=== PATIENT | male | born 1945 | race Caucasian/White ===

== ENCOUNTER 2016-12-05 23:16 | Inpatient (IN) | payer MEDICARE, OTHER ==
[~2016-12-05] VITALS: Ht 175.3 cm; Wt 88.0 kg
[~2016-12-05 23:16] MED LIST: 1-ME1LIQ PO; ASPI81 PO; CITA20TA4 PO; DOCU100T9 PO; GAS-80CH PO; GLUC500C3 PO; ISOS60TA PO; LEVA500T33 PO; LISI-366 PO; METO100T PO; NITR.4 SL; PRIL20CA PO; ROBA750T3 PO; ROSU40 PO; TERA1CAP3 PO; TRAM50TA PO; TRAZ50TA4 PO; WAL-10TA2 PO
[2016-12-05 23:20] VITALS: BP 146/68; PULSE 65; RESP 18
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
[2016-12-05] MEDS ORDERED: ZOSTCRE TOPICAL (23:48)
[2016-12-05] MEDS ORDERED: DOCU100C PO (23:48)
[2016-12-05] MEDS ORDERED: ATOR1TAB18 PO (23:48)
[2016-12-05] MEDS ORDERED: OMEP20TA PO (23:48)
[2016-12-05] MEDS ORDERED: GABA400C5 PO (23:48)
[2016-12-05] MEDS ORDERED: XARE20TA PO (23:48)
[2016-12-05] MEDS ORDERED: CITA20TA4 PO (23:48)
[2016-12-05] MEDS ORDERED: LISI40TA PO (23:48)
[2016-12-05] MEDS ORDERED: DICY20TA10 PO (23:48)
[2016-12-05] MEDS ORDERED: METO100T PO (23:48)
[2016-12-05] MEDS ORDERED: SIME80CH CHEW (23:48)
[2016-12-05] MEDS ORDERED: AMLO10TA2 PO (23:48)
[2016-12-05] MEDS ORDERED: METF500T PO (23:48)
[2016-12-05] MEDS ORDERED: TERA2CAP3 PO (23:48)
[2016-12-05] MEDS ORDERED: FLUT50SP EACH NARE (23:48)
[2016-12-05] MEDS ORDERED: TRAZ50TA12 PO (23:48)
[2016-12-05] MEDS ORDERED: CETI10 PO (23:48)
[2016-12-06] MEDS ORDERED: HYDROmorphone HCL PF 1 MG/ML VIAL IVP PRN (00:15)
[2016-12-06] MEDS ORDERED: SODIUM CHLORIDE 0.9% FLUSH 10 ML FLUSH IV FLUSH PRN (00:15)
[2016-12-06] MEDS ORDERED: CHLORHEXIDINE GLUCONATE 2 % 1 PACK (2 CLOTHS) TOP PRN (00:15)
[2016-12-06] MEDS ORDERED: MISCELLANEOUS NURSING INFORMATION XX SCH (00:15)
[2016-12-06] MEDS ORDERED: ACETAMINOPHEN/HYDROcodone 325 MG/5 MG TAB PO PRN (00:15)
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
[2016-12-06] MEDS: ACETAMINOPHEN/HYDROcodone 325 MG/5 MG TAB PO PRN ×2 (00:56→08:12)
[2016-12-06 03:30] VITALS: BP 128/67; PULSE 62; RESP 17; TEMP 98; O2SAT 93
[2016-12-06] MEDS: CHLORHEXIDINE GLUCONATE 2 % 1 PACK (2 CLOTHS) TOP SCH (04:00)
[2016-12-06 07:49] VITALS: BP 134/63; PULSE 73; RESP 20; TEMP 98; O2SAT 92
[2016-12-06] MEDS: DOCUSATE SODIUM 100 MG/10 ML UDC PO SCH ×2 (08:10→20:39)
[2016-12-06] MEDS ORDERED: SIMETHICONE 80 MG CHEWABLE TAB CHEW PRN (08:15)
[2016-12-06] MEDS: FLUTICASONE PROPIONATE 50 MCG/ACT 16 GM NASAL SPRAY EACH NARE SCH ×3 (09:00→20:39)
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
[2016-12-06] MEDS ORDERED: REMOVE OLD LIDOCAINE PATCH T-DERMAL SCH ×2 (09:30→21:00)
[2016-12-06] MEDS: METHOCARBAMOL 500 MG TAB PO SCH ×2 (10:00→18:32)
[2016-12-06 10:12] LABS: AUTOMATED NEUTROPHIL # 5.6 TH/MM3 (1.8-7.7); BASOPHIL % 0.3 % (0.0-2.0); EOSINOPHIL # 0.1 TH/MM3 (0-0.4); EOSINOPHIL % 0.9 % (0.0-4.0); HEMATOCRIT 38.6 % (39.0-51.0); HEMO FLAGS DIFF FINAL; LYMPH % 19.2 % (9.0-44.0); LYMPHOCYTE # 1.5 TH/MM3 (1.0-4.8); MEAN CELL VOLUME 85.5 FL (80.0-100.0); MEAN CORPUSCULAR HEMOGLOBIN 28.2 PG (27.0-34.0); MONO % 10.3 % (0.0-8.0); NEUT % 69.3 % (16.0-70.0); PLATELET COUNT 146 TH/MM3 (150-450); RED BLOOD COUNT 4.52 MIL/MM3 (4.50-5.90); WHITE BLOOD COUNT 8.1 TH/MM3 (4.0-11.0)
[2016-12-06 10:34] LABS: BICARBONATE 26.2 MEQ/L (21.0-32.0); POTASSIUM 4.1 MEQ/L (3.5-5.1)
[2016-12-06] MEDS: KETOROLAC TROMETHAMINE 30 MG/ML (IVP) VIAL IV PUSH SCH ×3 (12:00→18:33)
[2016-12-06 12:05] VITALS: BP 130/64; PULSE 70; RESP 20; TEMP 97.6; O2SAT 94
[2016-12-06] MEDS: LIDOCAINE HCL 5% PATCH T-DERMAL SCH (12:39)
[2016-12-06] MEDS: DICYCLOMINE HCL 20 MG TAB PO SCH ×4 (12:39→20:37)
[2016-12-06] MEDS: CETIRIZINE HCL 10 MG TAB PO SCH (12:40)
[2016-12-06] MEDS: METOPROLOL TARTRATE 100 MG TAB PO SCH ×2 (12:40→20:37)
[2016-12-06] MEDS: RIVAROXABAN 20 MG TAB PO SCH (12:40)
[2016-12-06] MEDS: LISINOPRIL 20 MG TAB PO SCH (12:40)
[2016-12-06] MEDS: FAMOTIDINE 20 MG TAB PO SCH ×2 (12:40→20:37)
[2016-12-06] MEDS: CITALOPRAM HYDROBROMIDE 20 MG TAB PO SCH (12:40)
[2016-12-06] MEDS: metFORMIN HCL 500 MG TAB PO SCH ×2 (12:40→16:49)
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
[2016-12-06 16:19] VITALS: BP 124/67; PULSE 60; RESP 20; TEMP 99.1; O2SAT 93
[2016-12-06] MEDS ORDERED: GABAPENTIN 400 MG CAP PO SCH (21:00)
[2016-12-06] MEDS ORDERED: MAGNESIUM HYDROXIDE SUSP 30 ML CUP PO SCH (21:00)
[2016-12-06] MEDS ORDERED: TERAZOSIN HCL 1 MG CAP PO SCH (21:00)
[2016-12-06] MEDS ORDERED: traZODone HCL 50 MG TAB PO SCH (21:00)
[2016-12-06] MEDS ORDERED: ATORVASTATIN 40 MG TAB PO SCH (21:00)
[2016-12-06 21:15] VITALS: BP 137/63; PULSE 68; RESP 17; TEMP 98.8; O2SAT 94
[2016-12-07] VITALS: BP 135/64; PULSE 64; RESP 18; TEMP 97.9; O2SAT 94
[2016-12-07] MEDS: KETOROLAC TROMETHAMINE 30 MG/ML (IVP) VIAL IV PUSH SCH ×3 (00:02→11:32)
[2016-12-07] MEDS: METHOCARBAMOL 500 MG TAB PO SCH ×2 (02:30→09:09)
[2016-12-07] MEDS: CHLORHEXIDINE GLUCONATE 2 % 1 PACK (2 CLOTHS) TOP SCH (04:00)
[2016-12-07 04:30] VITALS: BP 129/65; PULSE 69; RESP 17; TEMP 98.1; O2SAT 96
[2016-12-07 07:00] LABS: AUTOMATED NEUTROPHIL # 6.4 TH/MM3 (1.8-7.7); BASOPHIL % 0.5 % (0.0-2.0); EOSINOPHIL # 0.1 TH/MM3 (0-0.4); EOSINOPHIL % 1.6 % (0.0-4.0); HEMATOCRIT 36.7 % (39.0-51.0); HEMO FLAGS DIFF FINAL; LYMPH % 14.9 % (9.0-44.0); LYMPHOCYTE # 1.3 TH/MM3 (1.0-4.8); MEAN CELL VOLUME 84.9 FL (80.0-100.0); MEAN CORPUSCULAR HEMOGLOBIN 28.3 PG (27.0-34.0); MEAN CORPUSCULAR HGB CONC 33.3 % (32.0-36.0); MONO % 9.1 % (0.0-8.0); NEUT % 73.9 % (16.0-70.0); PLATELET COUNT 141 TH/MM3 (150-450); RED BLOOD COUNT 4.32 MIL/MM3 (4.50-5.90); RED CELL DISTRIBUTION WIDTH 13.3 % (11.6-17.2); WHITE BLOOD COUNT 8.6 TH/MM3 (4.0-11.0)
[2016-12-07 07:32] LABS: ALT (GPT) 31 U/L (12-78); ANION GAP 6 MEQ/L (5-15); AST (GOT) 25 U/L (15-37); BICARBONATE 28.1 MEQ/L (21.0-32.0); BLOOD UREA NITROGEN 15 MG/DL (7-18); CHLORIDE 105 MEQ/L (98-107); GLOMERULAR FILTRATION RATE 79 ML/MIN (>89); POTASSIUM 4.3 MEQ/L (3.5-5.1); SODIUM (NA) 139 MEQ/L (136-145)
[2016-12-07 07:34] LABS: ALKALINE PHOSPHATASE 63 U/L (45-117); TOTAL BILIRUBIN ADULT 0.6 MG/DL (0.2-1.0)
--- NOTE | 2016-12-07 07:58 | RADRPT ---
EXAM DATE/TIME: 12/07/2016 06:57 [facility] COMPARISON: CHEST SINGLE AP, December 06, 2016, 8:48. INDICATIONS : Short of breath MEDICAL HISTORY : Diabetes mellitus type II. Cardiovascular disease. asthma SURGICAL HISTORY : Appendectomy. angioplasty, shoulder and knee surgery ENCOUNTER: Subsequent ACUITY: 3 days PAIN SCORE: 2/10 LOCATION: Bilateral chest FINDINGS: Mild perihilar interstitial thickening is present which may reflect developing infiltrates or edema. No evidence of effusion. Heart size and mediastinal contours are stable. CONCLUSION: Developing perihilar interstitial prominence Castillo Hall MD on December 07, 2016 at 7:55 Board Certified Radiologist. This report was verified electronically.
[2016-12-07 08:43] VITALS: BP 135/66; PULSE 67; RESP 18; TEMP 99.4; O2SAT 95
[2016-12-07] MEDS: FLUTICASONE PROPIONATE 50 MCG/ACT 16 GM NASAL SPRAY EACH NARE SCH (09:00)
[2016-12-07] MEDS: CITALOPRAM HYDROBROMIDE 20 MG TAB PO SCH (09:06)
[2016-12-07] MEDS: METOPROLOL TARTRATE 100 MG TAB PO SCH (09:07)
[2016-12-07] MEDS: DICYCLOMINE HCL 20 MG TAB PO SCH ×2 (09:07→11:32)
[2016-12-07] MEDS: RIVAROXABAN 20 MG TAB PO SCH (09:07)
[2016-12-07] MEDS: CETIRIZINE HCL 10 MG TAB PO SCH (09:07)
[2016-12-07] MEDS: LISINOPRIL 20 MG TAB PO SCH (09:07)
[2016-12-07] MEDS: FAMOTIDINE 20 MG TAB PO SCH (09:07)
[2016-12-07] MEDS: metFORMIN HCL 500 MG TAB PO SCH (09:07)
[2016-12-07] MEDS: LIDOCAINE HCL 5% PATCH T-DERMAL SCH (09:08)
[2016-12-07] MEDS: DOCUSATE SODIUM 100 MG/10 ML UDC PO SCH (09:09)
[2016-12-07 12:28] VITALS: BP 126/59; PULSE 61; RESP 18; TEMP 97.4; O2SAT 96
[2016-12-07] MEDS ORDERED: HYDR-3516 PO (14:30)
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
== END 2016-12-07 15:06 | disposition home or self-care (01) | DRG 185 ==
LOC: NEPC 23:16 → NEDA 23:38 → N05A 12-06 03:14
PROVIDERS: ADMIT Surgery Trauma Surgery; ATTEND Surgery Trauma Surgery
DX: S22.41XA Multiple fractures of ribs, right side, initial encounter for closed fracture (principal); E11.9 Type 2 diabetes mellitus without complications; I10 Essential (primary) hypertension; I25.10 Atherosclerotic heart disease of native coronary artery without angina pectoris; I25.2 Old myocardial infarction; M79.641 Pain in right hand; E78.5 Hyperlipidemia, unspecified; V22.4XXA Motorcycle driver injured in collision with two- or three-wheeled motor vehicle in traffic accident, initial encounter; Y92.488 Other paved roadways as the place of occurrence of the external cause; Y93.89 Activity, other specified; Y99.9 Unspecified external cause status; E78.00 Pure hypercholesterolemia, unspecified; F43.10 Post-traumatic stress disorder, unspecified; K21.9 Gastro-esophageal reflux disease without esophagitis; N40.0 Benign prostatic hyperplasia without lower urinary tract symptoms; Z87.891 Personal history of nicotine dependence
CPT/HCPCS: 71010; 73130; 80048; 80053; 83735; 85025; 87641; 94150; 94640; 94667; 94668; 99285; J1885